=== PATIENT | female | born 1960 | race Caucasian/White ===

== ENCOUNTER → 2017-04-28 10:10 | Outpatient (CLI) | payer MEDICAID ==
[2015-05-27 07:35] VITALS: BMI 30.6
[~2017-04-28 10:10] MED LIST: ADIPEX-P37.5 M1 PO; ATARAX 25 MG TA25 MG PO; AUGMENTIN ES-6125 ML; BACTRIM DS TABL1 TAB PO; BENZONATATE200 MG PO; BREO ELLIPTA 11 EACH INH; CELEXA40 MG PO; ELAVIL25 MG PO; GLIPIZIDE10 MG PO; GLUCOPHAGE1000 MG PO; HYDROCODON-ACET15 ML PO; HYDROCODONE-APA1 TAB PO; INVOKANA100 MG PO; K-TAB10 MEQ PO; KLONOPIN1 MG PO; LEVEMIR100 U/M1 SC; LIPITOR20 MG PO; MUCINEX600 MG PO; NEURONTIN 300300 MG PO; NORCO 7.5/325 T1 TA1 PO; PHENERGAN25 M1 PO; PROVENTIL HFA6.7 GM INH; SINGULAIR10 MG PO; SPIRIVA18 MCG INH; TRADJENTA5 MG PO; TUDORZA PRESS400 MCG INH; ZESTRIL20 MG PO
== END | disposition home or self-care (01) ==
LOC: D.RAD 09:00
DX: M25.512 Pain in left shoulder (principal)

== ENCOUNTER → 2019-10-19 15:29 | Outpatient (CLI) | payer MEDICARE ==
[2015-05-27 07:35] VITALS: BMI 30.6
[2019-10-19 15:47] LABS: BASOPHILS 0.4 % (0-2); HEMATOCRIT 40.7 % (36.0-48.0); HEMOGLOBIN 12.9 g/dL (12-16); IMMATURE GRANULOCYTES 0.3 % (0-5); LYMPHOCYTES 43.7 % (15-50); MCHC 31.7 g/dL (31.0-37.0); MCV 91.5 fL (80.0-100.0); MEAN PLATELET VOLUME 9.7 fL (7.4-10.4); MONOCYTES 4.9 % (2-11); NEUTROPHILS 49.7 % (40-80); PLATELET COUNT 305 10x3/uL (130-400); RBC 4.45 10x6/uL (4.00-5.40); RDW 13.9 % (11.5-14.5)
== END | disposition home or self-care (01) ==
LOC: D.LABREF 15:29
PROVIDERS: ATTEND Internal Medicine Gastroenterology
DX: Z86.010 Personal history of colon polyps (principal); Z83.71 Family history of colonic polyps; R19.5 Other fecal abnormalities

== ENCOUNTER → 2019-11-18 07:26 | Outpatient (CLI) | payer MEDICARE, MEDICAID ==
[2015-05-27 07:35] VITALS: BMI 30.6
== END | disposition home or self-care (01) ==
LOC: D.RT 10-15 11:00 → D.RAD 10-15 11:45 → D.RT 07:26 → D.RAD 08:45
PROVIDERS: ATTEND Internal Medicine Pulmonary Disease
DX: J44.9 Chronic obstructive pulmonary disease, unspecified (principal)